=== PATIENT | female | born 2000 | race Caucasian/White ===

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

== ENCOUNTER → 2023-04-08 12:30 | Outpatient (CLI) | payer BC, OTHER, SELFPAY | PROVIDERS: PCP Internal Medicine; Visit Provider Internal Medicine | DX: R06.09 Other forms of dyspnea (principal); R00.0 Tachycardia, unspecified | CPT/HCPCS: 93225; 93226 ==

== ENCOUNTER → 2023-04-27 07:58 | Outpatient (CLI) | payer BC, OTHER, SELFPAY ==
--- NOTE | 2023-04-27 08:02 | CA_ITS ---
APPROVED REPORT EXAM: Comprehensive 2D, Doppler, and color-flow Echocardiogram Lead Java Programmer: Dana Pickens RDCS Ht: 5 ft 8 in Wt: 135lbs BSA: 1.73 BP: 110/82 mmHg Indications: SOA,SVT 2D Dimensions LVOT 1.67 cm (M/F) 1.5-2.5 M-Mode Dimensions RVDd 2.25 cm (0.9-2.6) LA Diam 2.26 cm (1.9-4.0) LVDd 4.06 cm (3.5-5.7) Ao Diam 2.79 cm (2.0-3.7) LVDs 3.00 cm (3.5-5.7) IVSd 0.53 cm (0.6-1.1) PWd 0.53 cm (0.6-1.1) EF (Teich) 51.70% FS 26.10% EDV (Teich) 72.50 mL ESV (Teich) 35.00 mL LV Diastology E Decel Time 143.00 (160-240 msec) E/A Ratio 2.0 MED E' 13.70 (< 7 cm/sec) E'/MED E' Ratio 7.09 (>14) LAT E' 22.20 (<10 cm/sec) E/LAT E' Ratio 4.37 (>14) Mitral Valve MV E Max Tarik. 97.00 (40-130 cm/s) MV A Velocity 49.00 (40-130 cm/s) E/A Ratio 1.99 MV Decel. Time 143.00 (160-240 ms) MV PHT 42.00 ms Left Ventricle The left ventricle is normal size. The left ventricular systolic function is normal. The left ventricular ejection fraction is within the normal range. There is normal left ventricular wall thickness. There is normal LV segmental wall motion. The left ventricular diastolic function is normal. LVEF is 55-60%. Right Ventricle The right ventricle is normal size. The right ventricular systolic function is normal. Atria The left atrium size is normal. The right atrium size is normal. There is no Doppler evidence of interatrial shunt. Aortic Valve The aortic valve is normal in structure. The aortic valve is trileaflet. There is no aortic valvular stenosis. No aortic regurgitation is present. Mitral Valve The mitral valve is normal in structure. No evidence of mitral valve stenosis. Trace mitral regurgitation. Tricuspid Valve The tricuspid valve leaflets are thin and pliable. Trace tricuspid regurgitation. There is insufficient TR jet to estimate RVSP. Pulmonic Valve The pulmonary valve is normal in structure. Trace pulmonic regurgitation. Great Vessels The aortic root is normal in size. The ascending aorta is not well visualized. IVC is normal in size and collapses >50% with inspiration. Pericardium There is no pericardial effusion. Other Information Study Quality: Adequate Conclusion Normal biventricular systolic function. No significant valvular stenosis or regurgitation. Electronically signed by : Nikole Real MD 04/27/2023 23:21:48
--- NOTE | 2023-04-27 08:50 | ECG_ITS ---
APPROVED REPORT Exam: Resting ECG HR:66 bpm ECG Measurements Heart Rate 66 AXES KS 121 P 39 QRSd 102 QRS 78 QT 376 T 46 QTc 390 Conclusion SINUS RHYTHM WITH SINUS ARRHYTHMIA INCOMPLETE RIGHT BUNDLE OTHERWISE A NORMAL EKG Electronically signed by : Joe Smith MD 04/27/2023 16:11:23
[2023-04-27 08:59] LABS: Eosinophils # 0.1 K/mm3 (0.0-0.4); Eosinophils % 2.2 % (0.1-12.0); Hematocrit 36.9 % (37.0-47.0); Hemoglobin 12.3 g/dL (12.2-16.2); Lymphocytes # 1.7 K/mm3 (0.7-4.5); Mean Corpuscular HGB Conc 33.3 g/dL (31.8-35.4); Mean Corpuscular Hemoglobin 27.3 pg (27.0-31.2); Mean Corpuscular Volume 82.2 fl (81-99); Mean Platelet Volume 7.1 fl (7.4-10.4); Monocytes # 0.2 K/mm3 (0.1-1.0); Monocytes % 5.4 % (1.7-9.3); Neutrophils # 2.3 K/mm3 (1.8-7.8); Neutrophils % 52.4 % (37.0-80.0); Platelet Count 337 K/mm3 (142-424); Red Blood Count 4.49 M/mm3 (4.20-5.40); Red Cell Distribution Width 12.7 % (11.5-17.5); White Blood Count 4.4 K/mm3 (4.5-13.0)
[2023-04-27 10:04] LABS: Alanine Aminotransferase 20 U/L (12-78); Albumin Level 4.5 g/dl (3.5-5.0); Albumin/Globulin Ratio 1.7 (1.1-1.8); Alkaline Phosphatase 59 U/L (38-126); Aspartate Amino Transferase 29 U/L (14-36); Bilirubin,Total 0.3 mg/dl (0.2-1.3); Blood Urea Nitrogen 11 mg/dl (7-17); Calcium 9.5 mg/dl (8.4-10.2); Carbon Dioxide 23 mmol/L (22.0-30.0); Chloride 105 mmol/L (98-107); Estimated Glomerular Filt Rate 107 ml/min (>60); GFR (African American) 129 ML/MIN (>60); Globulin 2.7 g/dL (1.3-3.2); Glucose 91 mg/dl (74-100); Sodium 137 mmol/L (136-145); Total Protein,Serum 7.2 g/dl (6.3-8.2)
[2023-04-27 10:35] LABS: Thyroid Stimulating Hormone 1.81 uIU/mL (0.465-4.68)
[2023-04-27 10:54] LABS: Free T4 (Free Thyroxine) 1.47 ng/dl (0.78-2.19)
== END ==
PROVIDERS: PCP Internal Medicine; Visit Provider Internal Medicine
DX: R00.0 Tachycardia, unspecified (principal); R06.00 Dyspnea, unspecified; R53.83 Other fatigue
CPT/HCPCS: 36415; 80053; 84439; 84443; 85025; 93005; 93306

== ENCOUNTER 2025-01-02 10:59 | Outpatient (CLI) | payer BC, SELFPAY ==
[2025-01-02] MEDS: RABIES VACCINE (PCEC)/PF 2.5 UNIT VIAL IM (11:17)
[2025-01-02 12:07] VITALS: BP 131/74; PULSE 91; RESP 18; O2SAT 100
== END 2025-01-02 11:26 | disposition home or self-care (01) ==
LOC: INF 11:01
PROVIDERS: PCP Internal Medicine; Visit Provider Internal Medicine
DX: Z29.14 Encounter for prophylactic rabies immune globulin (principal)
CPT/HCPCS: 90675; 96372

== ENCOUNTER 2025-01-09 10:53 | Outpatient (CLI) | payer BC, SELFPAY ==
[2025-01-09 11:12] VITALS: BP 118/72; PULSE 76; RESP 18; TEMP 36.8; O2SAT 100
[2025-01-09] MEDS: RABIES VACCINE (PCEC)/PF 2.5 UNIT VIAL IM (11:12)
== END 2025-01-09 11:20 | disposition home or self-care (01) ==
LOC: INF 10:54
PROVIDERS: PCP Internal Medicine; Visit Provider Internal Medicine
DX: Z23 Encounter for immunization (principal)
CPT/HCPCS: 90675; 96372